=== PATIENT | male | born 1930 | race Caucasian/White ===

== ENCOUNTER 2016-11-17 12:28 | Emergency (ER) | payer MEDICARE, OTHER ==
[2016-11-17 11:41] LABS: BASOPHILS 0.9 %; BASOPHILS ABSOLUTE 0.05 10/3/uL (0.0-0.16); EOSINOPHILS 2.9 %; EOSINOPHILS ABSOLUTE 0.17 10/3/uL (0.0-0.53); ER CBC TAT 0 Hrs 07 Mins; HEMOGLOBIN 15.4 g/dL (13.6-17.8); IMMATURE GRANULOCYTES 0.5 %; IMMATURE GRANULOCYTES ABSOLUTE 0.03 10/3/uL (0.0-0.11); LYMPHOCYTES ABSOLUTE 1.59 10/3/uL (0.67-4.30); MEAN CORPUS HGB CONC 33.9 g/dL (32.0-36.0); MEAN PLATELET VOLUME 10.6 fL (9.2-13.0); MONOCYTES 8.5 %; NEUTROPHILS 60.2 %; NEUTROPHILS ABSOLUTE 3.54 10/3/uL (2.02-8.40); PLATELET COUNT 132 10/3/uL (150-400); RBC DISTRIBUTION WIDTH 13.8 % (12.0-16.0); RED CELL COUNT 4.97 10/6/uL (4.7-6.1); WHITE BLOOD CELLS 5.9 10/3/uL (4.5-10.5)
[2016-11-17 11:42] LABS: HEMATOCRIT 45.4 % (40.0-51.0); MANUAL DIFF NO %; MEAN CORPUSCULAR VOLUME 91.3 fL (80-100)
[2016-11-17 11:48] LABS: INTERNATIONAL NORMAL RATI 1.3 UNITS (-); PARTIAL THROMBO TIME 29.6 SEC (22.5-37.2)
[2016-11-17 11:50] LABS: PROTIME (NOT ORD) 16.3 SEC (12.0-14.5)
[2016-11-17 12:01] LABS: CALCIUM, SERUM 9.3 MG/DL (8.5-10.4); CHEST PAIN PROFILE TAT 0 Hrs 27 Mins; CHLORIDE, SERUM 102 MMOL/L (96-112); CO2 (CARBON DIOXIDE) 31 MMOL/L (24-34); CREATININE 1.54 MG/DL (0.70-1.30); GFR AFRICAN AMERICAN 46 ML/MIN (>=60); GFR NON AFRICAN AMERICAN 40 ML/MIN (>=60); GLUCOSE, SERUM 141 MG/DL (60-99); POTASSIUM, SERUM 4.1 MMOL/L (3.5-5.3); SODIUM, SERUM 137 MMOL/L (135-148); TROPONIN I 0.02 NG/ML (<0.05)
[2016-11-17 12:02] LABS: BUN (BLOOD UREA NITROGEN) 32 MG/DL (6-23)
[~2016-11-17 12:28] MED LIST: ACIPHEX PO; AMPI500 PO; ASAB PO; BUM1 PO; BUM5 PO; CAT1 PO; CIP5 PO; DCN100 PO; DSS PO; ELIQUIS 2.5 MG2.5 MG PO; ELIQUIS 5 MG TAB5 MG PO; FLONASE NAS; FLORASTOR250 MG PO; HALF81 PO; IBU-200200 MG PO; IBU400 PO; L10 PO; LIPITOR20 PO; LOP25 PO; LOP50 PO; MICRO-K10 MEQ PO; NICODERM C14 MG/24 H TOP; PRINZIDE PO; PROAIR HFA INH; PROBIOTIC ADVANTAGE PO; PROBIOTIC PO; T PO; TESS PO; TOPXL50 PO; ULTRAM50 PO; VITAMIN D3400 UNIT PO; ZESTORETIC1 TA1 PO; ZESTRIL10 MG PO; [UNRECOGNIZED DRUG - OTHER] PO
== END 2016-11-17 16:37 | disposition home or self-care (01) ==
LOC: ER 12:28
PROVIDERS: Nurse Practitioner
DX: R42 Dizziness and giddiness (principal); D69.6 Thrombocytopenia, unspecified; I12.9 Hypertensive chronic kidney disease with stage 1 through stage 4 chronic kidney disease, or unspecified chronic kidney disease; N18.9 Chronic kidney disease, unspecified; I48.91 Unspecified atrial fibrillation; F17.200 Nicotine dependence, unspecified, uncomplicated; Z88.2 Allergy status to sulfonamides; Z79.82 Long term (current) use of aspirin; Z79.899 Other long term (current) drug therapy
CPT/HCPCS: 70450; 71020; 80048; 83735; 84484; 85025; 85610; 85730; 93005; 99285; A9270-GY